=== PATIENT | male | born 1980 | race African-American/Black ===

== ENCOUNTER 2021-12-07 13:32 | Inpatient (IN) | payer OTHER, SELFPAY ==
[2021-12-07 13:46] VITALS: BP 110/65; BP 110/70; PULSE 75; PULSE 76; RESP 18; O2SAT 96; O2SAT 97; BMI 28.1
--- NOTE | 2021-12-07 13:50 | ECG_ITS ---
Test Reason : med clearance Blood Pressure : / mmHG Vent. Rate : 063 BPM Atrial Rate : 063 BPM P-R Int : 164 ms QRS Dur : 084 ms QT Int : 424 ms P-R-T Axes : 056 -16 -14 degrees QTc Int : 433 ms Normal sinus rhythm Nonspecific T wave abnormality Inferior leads Intra-ventricular conduction delay Abnormal ECG No previous ECGs available Referred By: Stephanie Moarles Electronically Signed By:AKIL SHARMA MD
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
[2021-12-07 14:35] LABS: COVID-19 Test Negative (Negative)
[2021-12-07 14:38] VITALS: TEMP 36.6
[2021-12-07 15:06] LABS: MANUAL DIFF FLAG NO
[2021-12-07 15:07] LABS: Basophils Percent Auto 0.4 % (0-2); Eosinophils Absolute Auto 0.1 X10*3/uL (0.0-0.4); Eosinophils Percent Auto 1.7 % (0-4); Hematocrit 43.4 % (42.0-52.0); Hemoglobin 15.3 g/dl (14.0-18.0); Imm Gran Abs Auto 0.02 X10*3/uL (0.00-0.03); Imm Gran Pct Auto 0.3 % (0.0-0.4); Lymphocytes Absolute Auto 2.1 X10*3/uL (1.2-4.9); Lymphocytes Percent Auto 27.5 % (20-40); Mean Corpuscular HGB Conc 35.3 g/dl (31.0-36.0); Mean Corpuscular Hemoglobin 34.3 pg (27.0-33.0); Mean Corpuscular Volume 97.3 fL (80.0-98.0); Mean Platelet Volume 9.2 fL (9.4-12.4); Monocytes Absolute Auto 0.7 X10*3/uL (0.1-1.2); Neutrophils Absolute Auto 4.7 x10*3/uL (2.0-8.3); Neutrophils Percent Auto 61.1 % (45-73); Platelet Count 233 X10*3/uL (160-400); Red Blood Count 4.46 X10*6/uL (4.60-5.80); Red Cell Distribution Width 12.3 % (11.0-16.0); White Blood Count 7.7 X10*3/uL (4.8-10.8)
[2021-12-07 15:22] LABS: Alanine Aminotransferase 16 U/L (0-40); Albumin Level 4.2 g/dL (3.5-5.0); Alkaline Phosphatase 65 U/L (39-117); Anion Gap 14 (12-20); Aspartate Amino Transferase 23 U/L (5-37); Bilirubin Total 0.5 mg/dL (0.0-1.0); Blood Urea Nitrogen 18 mg/dL (9-16); Calcium 9.3 mg/dL (8.4-10.2); Carbon Dioxide 26 mmol/L (22-29); Chloride 106 mmol/L (96-108); Creatinine Clr Calc Pharmacy 76.1; Estimated Glomerular Filt Rate 59; Ethanol < 10 mg/dL; Glucose Random 102 mg/dL (60-115); Potassium 3.6 mmol/L (3.3-5.1); Sodium 142 mmol/L (135-145); Total Protein 6.4 g/dL (6.5-8.0)
--- NOTE | 2021-12-07 15:32 | PC.NURSE ---
N referral completed/Sent/Confirmation received
--- NOTE | 2021-12-07 16:23 | PHA.MEDREC ---
Pharmacy Consult ? Medication Reconciliation Pharmacy has completed the medication reconciliation. Spoke with patient in the [facility]. List in chart from [facility]. Patient unsure of medications he is taking. He states he last took his medications this morning but before that it was 3 weeks ago.
[2021-12-07 16:32] LABS: Troponin-I High Sensitivity 12.1 ng/L (<3.5-35.0)
[2021-12-07 18:52] LABS: Troponin-I High Sensitivity 9.6 ng/L (<3.5-35.0)
[2021-12-07 19:04] LABS: Amphetamine Screen Urine Not Detected (Not Detect); Barbiturates, Urine Not Detected (Not Detect); Benzodiazepines Screen Urine Not Detected (Not Detect); Cannabinoid Screen Urine POSITIVE (Not Detect); Cocaine Screen Urine POSITIVE (Not Detect); Fentanyl, urine Not Detected (Not Detect); Opiate Screen Urine Not Detected (Not Detect); Phencyclidine Screen Urine Not Detected (Not Detect)
[2021-12-07 23:55] VITALS: BP 112/58; PULSE 67; RESP 18; TEMP 36.2; O2SAT 96
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
[2021-12-08] MEDS: Omeprazole 20 MG CAPSULE.DR PO (06:55)
[2021-12-08] MEDS: Benztropine Mesylate 1 MG TABLET PO ×2 (08:21→20:10)
[2021-12-08] MEDS: Cariprazine HCl 3 MG CAPSULE PO (08:21)
[2021-12-08] MEDS: Perphenazine 8 MG TABLET PO ×2 (08:21→20:10)
[2021-12-08 09:55] LABS: Alanine Aminotransferase 16 U/L (0-40); Albumin Level 4.5 g/dL (3.5-5.0); Alkaline Phosphatase 79 U/L (39-117); Anion Gap 17 (12-20); Aspartate Amino Transferase 24 U/L (5-37); Bilirubin Total < 0.2 mg/dL (0.0-1.0); Blood Urea Nitrogen 14 mg/dL (9-16); Calcium 9.8 mg/dL (8.4-10.2); Carbon Dioxide 28 mmol/L (22-29); Chloride 104 mmol/L (96-108); Cholesterol 193 mg/dL; Creatinine Clr Calc Pharmacy 76.1; Estimated Glomerular Filt Rate 59; Glucose Fasting 135 mg/dL (60-99); HDL Cholesterol 46 mg/dL; LDL Cholesterol Calculated 127 mg/dl; Potassium 4.7 mmol/L (3.3-5.1); Sodium 144 mmol/L (135-145); Triglycerides 100 mg/dL
[2021-12-08] MEDS: Acetaminophen 325 MG TABLET 650 MG PO (10:19)
[2021-12-08 10:48] VITALS: BP 128/74; PULSE 67; RESP 16; TEMP 36.6; O2SAT 97
[2021-12-08] MEDS: Gabapentin 600 MG TABLET PO ×2 (13:23→20:11)
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
[2021-12-08 17:21] VITALS: BP 135/81; PULSE 79; RESP 16; TEMP 36.6; O2SAT 98
[2021-12-08] MEDS: FLUoxetine HCl 20 MG CAPSULE 40 MG PO (20:11)
[2021-12-08 22:27] LABS: COVID-19 Test Negative (Negative); IDNOW Serial# 08D9AD1C
[2021-12-09] MEDS: traZODone HCL 50 MG TABLET PO (02:02)
[2021-12-09] MEDS: diphenhydrAMINE HCL 25 MG CAPSULE 50 MG PO (02:02)
[2021-12-09 06:00] VITALS: BP 126/84; PULSE 66; RESP 18; TEMP 36.2; O2SAT 99
[2021-12-09] MEDS: Omeprazole 20 MG CAPSULE.DR PO (06:29)
[2021-12-09] MEDS: Gabapentin 600 MG TABLET PO ×3 (08:31→20:22)
[2021-12-09] MEDS: Cariprazine HCl 3 MG CAPSULE PO (08:31)
[2021-12-09] MEDS: Perphenazine 8 MG TABLET PO (08:31)
[2021-12-09] MEDS: Benztropine Mesylate 1 MG TABLET PO ×2 (08:31→20:22)
[2021-12-09] MEDS: Acetaminophen 325 MG TABLET 650 MG PO (11:07)
--- NOTE | 2021-12-09 15:03 | HO.PSYCHPN ---
Subjective Subjective Date of Service: 12/09/21 Reason For Visit: Psychosis Subjective Notes: Conditional Voluntary Healthcare Proxy: No Guardianship: No Medical Problems Affecting Mental Status: No Interim History: Reports arm/shoulder pain-hx fracture in Feb 2021. States he was supposed to have surgery but missed appt. Reports popping sound in his shoulder at times. Asks if we can do the surgery here. Discussed OP referral when discharged. Denies SI/HI. Reports he is safe here. Full review of meds. Asks for increases of Vraylar and Perphenazine. Asks for pain mgt-will increase Gabapentin and add Ibuprofen. Believes he has a rash on his inner R arm-nothing visable to tw-will need to continue to monitor-itchy per pt report-?dry skin. Reports feeling safe on the unit. Interacting with peers (card games) and appears calm and without distress. Medication Compliance: Yes Side effects from medications: No Attending Groups: Yes Review of Systems Acute medical concerns: No Medical Review of Systems: unchanged Mental Status Exam Mental Status Exam Patient Appearance: Appropriate Patient Orientation: Person, Place, Time and Situation Level of Consciousness: Alert Patient Behavior: Appropriate, Talkative, Cooperative and Good Eye Contact Mood Description: Apprehensive Affect Description: Apprehensive Patient Cognition Impaired: No Ability to Follow Directions: Good Speech Pattern: Spontaneous Speech Memory Description: Episodic Impaired Hallucinations: Auditory (at times per pt report) Delusions: Not Present Thought Process: Distracted Thought Content: positive for [place] Judgement: Good Diagnostics Vital Signs (24Hr): Vital Signs - 24 hr 12/08/21 17:21 12/09/21 06:00 Temperature 97.9 F 97.2 F Pulse Rate 79 66 Respiratory Rate 16 18 Blood Pressure 135/81 126/84 Pulse Oximetry 98 99 Oxygen Delivery Method Room Air Room Air BMI result Body Mass Index 28.1 Labs Results: 12/07/21 15:01 12/08/21 08:21 Labs: Laboratory Results - last 48 hr 12/07/21 12/07/21 12/07/21 15:01 15:01 15:01 WBC 7.7 RBC 4.46 L Hgb 15.3 Hct 43.4 MCV 97.3 MCH 34.3 H MCHC 35.3 RDW 12.3 Plt Count 233 MPV 9.2 L Immature Gran % (Auto) 0.3 Neut % (Auto) 61.1 Lymph % (Auto) 27.5 [place] % (Auto) 9.0 Eos % (Auto) 1.7 Baso % (Auto) 0.4 Lymph # (Auto) 2.1 [place] # (Auto) 0.7 Eos # (Auto) 0.1 Baso # (Auto) 0.0 Abs Immat Gran (auto) 0.02 Absolute Neuts (auto) 4.7 Absolute Nucleated RBC 0.000 Nucleated RBC % (auto) 0.0 Sodium 142 Potassium 3.6 Chloride 106 Carbon Dioxide 26 Anion Gap 14 BUN 18 H Creatinine 1.32 Estim Creat Clear Calc 76.1 Estimated GFR 59 Random Glucose 102 Fasting Glucose Calcium 9.3 Total Bilirubin 0.5 AST 23 ALT 16 Alkaline Phosphatase 65 Troponin I High Sens 12.1 Total Protein 6.4 L Albumin 4.2 Triglycerides Cholesterol LDL Cholesterol, Calc HDL Cholesterol Urine Opiates Screen Urine Fentanyl Screen Ur Barbiturates Screen Ur Phencyclidine Scrn Ur Amphetamines Screen U Benzodiazepines Scrn Urine Cocaine Screen U Marijuana (THC) Screen Ethyl Alcohol < 10 COVID-19 (ELIZ) COVID-19 [employer] 12/07/21 12/07/21 12/08/21 18:21 18:39 08:21 WBC RBC Hgb Hct MCV MCH MCHC RDW Plt Count MPV Immature Gran % (Auto) Neut % (Auto) Lymph % (Auto) [place] % (Auto) Eos % (Auto) Baso % (Auto) Lymph # (Auto) [place] # (Auto) Eos # (Auto) Baso # (Auto) Abs Immat Gran (auto) Absolute Neuts (auto) Absolute Nucleated RBC Nucleated RBC % (auto) Sodium 144 Potassium 4.7 D Chloride 104 Carbon Dioxide 28 Anion Gap 17 BUN 14 Creatinine 1.32 Estim Creat Clear Calc 76.1 Estimated GFR 59 Random Glucose Fasting Glucose 135 H Calcium 9.8 Total Bilirubin < 0.2 AST 24 ALT 16 Alkaline Phosphatase 79 D Troponin I High Sens 9.6 Total Protein 7.0 Albumin 4.5 Triglycerides 100 Cholesterol 193 LDL Cholesterol, Calc 127 HDL Cholesterol 46 Urine Opiates Screen Not Detected Urine Fentanyl Screen Not Detected Ur Barbiturates Screen Not Detected Ur Phencyclidine Scrn Not Detected Ur Amphetamines Screen Not Detected U Benzodiazepines Scrn Not Detected Urine Cocaine Screen POSITIVE H U Marijuana (THC) Screen POSITIVE H Ethyl Alcohol COVID-19 (ELIZ) COVID-19 [employer] 12/08/21 21:52 WBC RBC Hgb Hct MCV MCH MCHC RDW Plt Count MPV Immature Gran % (Auto) Neut % (Auto) Lymph % (Auto) [place] % (Auto) Eos % (Auto) Baso % (Auto) Lymph # (Auto) [place] # (Auto) Eos # (Auto) Baso # (Auto) Abs Immat Gran (auto) Absolute Neuts (auto) Absolute Nucleated RBC Nucleated RBC % (auto) Sodium Potassium Chloride Carbon Dioxide Anion Gap BUN Creatinine Estim Creat Clear Calc Estimated GFR Random Glucose Fasting Glucose Calcium Total Bilirubin AST ALT Alkaline Phosphatase Troponin I High Sens Total Protein Albumin Triglycerides Cholesterol LDL Cholesterol, Calc HDL Cholesterol Urine Opiates Screen Urine Fentanyl Screen Ur Barbiturates Screen Ur Phencyclidine Scrn Ur Amphetamines Screen U Benzodiazepines Scrn Urine Cocaine Screen U Marijuana (THC) Screen Ethyl Alcohol COVID-19 (ELIZ) Negative COVID-19 [place] Com See Note Medications Medications Current Medications Acetaminophen (Acetaminophen 325 Mg Tablet) 650 mg PO Q6H PRN PRN Reason: Headache/Pain Mild Scale (1-3) Last Admin: 12/09/21 11:07 Dose: 650 mg Al Hydroxide/Mg Hydroxide (Magnesium Hydrox/Alum Hydrox 30 Ml Oral.Susp) 30 ml PO Q6H PRN PRN Reason: Heartburn/Nausea Benztropine Mesylate (Benztropine Mesylate 1 Mg Tablet) 1 mg PO BID [facility] Last Admin: 12/09/21 08:31 Dose: 1 mg Cariprazine (Cariprazine Hcl 1.5 Mg Capsule) 4.5 mg PO DAILY [facility] Diphenhydramine HCl (Diphenhydramine Hcl 25 Mg Capsule) 50 mg PO TID PRN PRN Reason: Anxiety Last Admin: 12/09/21 02:02 Dose: 50 mg Fluoxetine HCl (Fluoxetine Hcl 20 Mg Capsule) 40 mg PO BEDTIME [facility] Last Admin: 12/08/21 20:11 Dose: 40 mg Gabapentin (Gabapentin 600 Mg Tablet) 600 mg PO TID [facility] Last Admin: 12/09/21 14:40 Dose: 600 mg Ibuprofen (Ibuprofen 800 Mg Tablet) 800 mg PO TIDWM [facility] Magnesium Hydroxide (Milk Of Magnesia 30 Ml Oral.Susp) 30 ml PO DAILY PRN PRN Reason: Constipation Omeprazole (Omeprazole 20 Mg Capsule.Dr) 20 mg PO DAILY@0630 [facility] Last Admin: 12/09/21 06:29 Dose: 20 mg Perphenazine (Perphenazine 8 Mg Tablet) 16 mg PO BID [facility] Pharmacy Consult (Consult Rx Perform Med Rec) 1 each MISCELLANE ONCE PRN PRN Reason: Consult order Allergies Allergies Allergy/AdvReac Type Severity Reaction Status Date / Time No Known Allergies Allergy Verified 12/07/21 13:50 Assessment & Plan Assessment & Plan (1) Schizophrenia: Status: Acute Code(s): F20.9 - Schizophrenia, unspecified Plan 41 yo male, hx of schizophrenia, depression, anxiety to ER via [facility] for HI. Pt will not interview today. Medication regime is restarted. Observe and attempt alliance building. 12/09/21 -Increase Vraylar to 4.5 mg daily -Increase Perphenazine to 16 mg bid -Increase Gabapentin to 600 mg tid (shoulder pain) -Ibuprofen 800 mg tid wm (shoulder pain) I spent minutes with the patient and/or on the patient floor today, greater than?50% of which was spent counseling/coordinating care. Patient educated on: medication risk/benefits, therapeutic strategies and medical condition Informed Consent: understands and further education needed Reason for contiued inpatient stay Substantial Risk for: harm to self, harm to others and rapid decompensation
[2021-12-09] MEDS: Ibuprofen 800 MG TABLET PO (18:17)
[2021-12-09 18:43] VITALS: BP 128/64; PULSE 75; TEMP 36.4
[2021-12-09] MEDS: Perphenazine 8 MG TABLET 16 MG PO (20:22)
[2021-12-09] MEDS: FLUoxetine HCl 20 MG CAPSULE 40 MG PO (20:22)
[2021-12-10 06:00] VITALS: BP 134/82; PULSE 76; RESP 20; TEMP 36.6; O2SAT 98
[2021-12-10] MEDS: Omeprazole 20 MG CAPSULE.DR PO (08:04)
[2021-12-10] MEDS: Ibuprofen 800 MG TABLET PO ×3 (08:39→18:13)
[2021-12-10] MEDS: Perphenazine 8 MG TABLET 16 MG PO ×2 (08:39→21:17)
[2021-12-10] MEDS: Gabapentin 600 MG TABLET PO ×3 (08:39→21:17)
[2021-12-10] MEDS: Cariprazine HCl 1.5 MG CAPSULE 4.5 MG PO (08:39)
[2021-12-10] MEDS: Benztropine Mesylate 1 MG TABLET PO ×2 (08:39→21:17)
[2021-12-10] MEDS: Lidocaine 4 % Patch ADH..PATCH 2 PATCH TRANSDERMA ×2 (16:14→17:11)
[2021-12-10 19:06] VITALS: BP 145/79; PULSE 83; RESP 18; TEMP 36.9; O2SAT 95
[2021-12-10] MEDS: FLUoxetine HCl 20 MG CAPSULE 40 MG PO (21:16)
[2021-12-10] MEDS: diphenhydrAMINE HCL 25 MG CAPSULE 50 MG PO (21:16)
--- NOTE | 2021-12-10 22:22 | P.PNPSI_ITS ---
Subjective Subjective Date of Service: 12/10/21 Reason For Visit: Psychosis Subjective Notes: [place] Warning and Conditional Voluntary Healthcare Proxy: No Guardianship: No Medical Problems Affecting Mental Status: No Interim History: Met with pt. Per team, pt is requesting levothyroxine to be restored, reviewed pharmacy records, supposed to be on 25 mg, will also order TSH with T4. Pt complains of pain in both shoulders, willing to trail a lidoacaine patch, hx of shoulder fracture over a year ago. Pt also complains of rash on Left upper arm, reviewed with hospitalist, appears fungal, will order clotrimazole. Says he is doing alright considering the meds im taking dont work. Complains of depression, voices, its all that. Discussed that his doses were recently increased and encouraged him to give them a fair trial, pt is willing but insists they're not gonna work. Medication Compliance: Yes Side effects from medications: No Attending Groups: Yes Review of Systems Acute medical concerns: No Medical Review of Systems: unchanged Mental Status Exam Mental Status Exam Narrative: Patient Appearance: Appropriate Patient Orientation: Person, Place, Time and Situation Level of Consciousness: Alert Patient Behavior: Appropriate, Talkative, Cooperative and Good Eye Contact Mood Description: Apprehensive Affect Description: Apprehensive Patient Cognition Impaired: No Ability to Follow Directions: Good Speech Pattern: Spontaneous Speech Memory Description: Episodic Impaired Hallucinations: Auditory (at times per pt report) Delusions: Not Present Thought Process: Distracted Thought Content: positive for [place] Judgement: Good Diagnostics Vital Signs (24Hr): Vital Signs - 24 hr 12/10/21 06:00 12/10/21 19:06 Temperature 98 F 98.4 F Pulse Rate 76 83 Respiratory Rate 20 18 Blood Pressure 134/82 145/79 H Pulse Oximetry 98 95 Oxygen Delivery Method Room Air Room Air BMI result Body Mass Index 28.1 Labs Results: 12/07/21 15:01 12/08/21 08:21 Labs: Laboratory Results - last 48 hr 12/08/21 21:52 COVID-19 (ELIZ) Negative COVID-19 Clin Com See Note Medications Medications Current Medications Acetaminophen (Acetaminophen 325 Mg Tablet) 650 mg PO Q6H PRN PRN Reason: Headache/Pain Mild Scale (1-3) Last Admin: 12/09/21 11:07 Dose: 650 mg Al Hydroxide/Mg Hydroxide (Magnesium Hydrox/Alum Hydrox 30 Ml Oral.Susp) 30 ml PO Q6H PRN PRN Reason: Heartburn/Nausea Benztropine Mesylate (Benztropine Mesylate 1 Mg Tablet) 1 mg PO BID [facility] Last Admin: 12/10/21 21:17 Dose: 1 mg Cariprazine (Cariprazine Hcl 1.5 Mg Capsule) 4.5 mg PO DAILY [facility] Last Admin: 12/10/21 08:39 Dose: 4.5 mg Clotrimazole (Clotrimazole 1 % Cream 15 Gm Tube) 1 appl TOPICAL BID [facility] Last Admin: 12/10/21 21:26 Dose: Not Given Diphenhydramine HCl (Diphenhydramine Hcl 25 Mg Capsule) 50 mg PO TID PRN PRN Reason: Anxiety Last Admin: 12/10/21 21:16 Dose: 50 mg Fluoxetine HCl (Fluoxetine Hcl 20 Mg Capsule) 40 mg PO BEDTIME [facility] Last Admin: 12/10/21 21:16 Dose: 40 mg Gabapentin (Gabapentin 600 Mg Tablet) 600 mg PO TID [facility] Last Admin: 12/10/21 21:17 Dose: 600 mg Ibuprofen (Ibuprofen 800 Mg Tablet) 800 mg PO TIDWM [facility] Last Admin: 12/10/21 18:13 Dose: 800 mg Lidocaine (Lidocaine 4 % Patch Adh..Patch) 2 patch TRANSDERMA DAILY [facility] Last Admin: 12/10/21 17:11 Dose: 1 patch Magnesium Hydroxide (Milk Of Magnesia 30 Ml Oral.Susp) 30 ml PO DAILY PRN PRN Reason: Constipation Omeprazole (Omeprazole 20 Mg Capsule.Dr) 20 mg PO DAILY@0630 [facility] Last Admin: 12/10/21 08:04 Dose: 20 mg Perphenazine (Perphenazine 8 Mg Tablet) 16 mg PO BID [facility] Last Admin: 12/10/21 21:17 Dose: 16 mg Pharmacy Consult (Consult Rx Perform Med Rec) 1 each MISCELLANE ONCE PRN PRN Reason: Consult order Allergies Allergies Allergy/AdvReac Type Severity Reaction Status Date / Time No Known Allergies Allergy Verified 12/07/21 13:50 Assessment & Plan Assessment & Plan (1) Schizophrenia: Status: Acute Code(s): F20.9 - Schizophrenia, unspecified Plan 41 yo male, hx of schizophrenia, depression, anxiety to ER via [facility] for HI. Pt will not interview today. Medication regime is restarted. Observe and attempt alliance building. 12/09/21 -Increase Vraylar to 4.5 mg daily -Increase Perphenazine to 16 mg bid -Increase Gabapentin to 600 mg tid (shoulder pain) -Ibuprofen 800 mg tid wm (shoulder pain) 12/10/21: No med changes, added clotrimazole cream, levothyroxine, lidocaine patch I spent minutes with the patient and/or on the patient floor today, greater than?50% of which was spent counseling/coordinating care. Patient educated on: diagnosis, medication risk/benefits and therapeutic strategies Reason for contiued inpatient stay Substantial Risk for: med/psych decompensation
[2021-12-11] MEDS: diphenhydrAMINE HCL 25 MG CAPSULE 50 MG PO ×2 (02:14→11:48)
[2021-12-11 06:00] VITALS: BP 140/80; PULSE 80; RESP 18; TEMP 36.6; O2SAT 97
[2021-12-11] MEDS: Omeprazole 20 MG CAPSULE.DR PO (06:19)
[2021-12-11] MEDS: Levothyroxine Sodium 25 MCG TABLET PO (06:21)
[2021-12-11] MEDS: Gabapentin 600 MG TABLET PO ×3 (08:30→20:41)
[2021-12-11] MEDS: Perphenazine 8 MG TABLET 16 MG PO ×2 (08:30→20:41)
[2021-12-11] MEDS: Cariprazine HCl 1.5 MG CAPSULE 4.5 MG PO (08:30)
[2021-12-11] MEDS: Ibuprofen 800 MG TABLET PO ×3 (08:30→15:59)
[2021-12-11] MEDS: Benztropine Mesylate 1 MG TABLET PO ×2 (08:31→20:41)
[2021-12-11 09:51] LABS: TSH reflex Free T4 3.34 uIU/mL (0.32-4.0)
--- NOTE | 2021-12-11 13:06 | HO.PSYCHPN ---
Subjective Subjective Date of Service: 12/11/21 Reason For Visit: Psychosis Subjective Notes: [place] Warning Interim History: Discussed with team, met with pt. He reports he is frustrated, unhappy that his med doses were increased as he says they are ineffective and he does not want to take them anymore. Says he forgot if zyprexa worked for him but doesnt want to take it because of wt gain. Was on abilify for years, didnt do nothing. Says prior to trilafon he was on haldol but says it didnt work. Had a brief trial on latuda, willing to re-trial this for depression. Medication Compliance: Yes Side effects from medications: No Attending Groups: Intermittent Review of Systems Acute medical concerns: No Medical Review of Systems: unchanged Mental Status Exam Mental Status Exam Narrative: Patient Appearance: Appropriate Patient Orientation: Person, Place, Time and Situation Level of Consciousness: Alert Patient Behavior: Appropriate, Talkative, Cooperative and Good Eye Contact Mood Description: Apprehensive Affect Description: Apprehensive Patient Cognition Impaired: No Ability to Follow Directions: Good Speech Pattern: Spontaneous Speech Memory Description: Episodic Impaired Hallucinations: Auditory (at times per pt report) Delusions: Not Present Thought Process: Distracted Thought Content: positive for [place] Judgement: Good Diagnostics Vital Signs (24Hr): Vital Signs - 24 hr 12/10/21 19:06 12/11/21 06:00 Temperature 98.4 F 98 F Pulse Rate 83 80 Respiratory Rate 18 18 Blood Pressure 145/79 H 140/80 H Pulse Oximetry 95 97 Oxygen Delivery Method Room Air Room Air BMI result Body Mass Index 28.1 Labs Results: 12/07/21 15:01 12/08/21 08:21 Labs: Laboratory Results - last 48 hr 12/11/21 07:39 TSH 3.34 Medications Medications Current Medications Acetaminophen (Acetaminophen 325 Mg Tablet) 650 mg PO Q6H PRN PRN Reason: Headache/Pain Mild Scale (1-3) Last Admin: 12/09/21 11:07 Dose: 650 mg Al Hydroxide/Mg Hydroxide (Magnesium Hydrox/Alum Hydrox 30 Ml Oral.Susp) 30 ml PO Q6H PRN PRN Reason: Heartburn/Nausea Benztropine Mesylate (Benztropine Mesylate 1 Mg Tablet) 1 mg PO BID [facility] Last Admin: 12/11/21 08:31 Dose: 1 mg Cariprazine (Cariprazine Hcl 1.5 Mg Capsule) 4.5 mg PO DAILY [facility] Last Admin: 12/11/21 08:30 Dose: 4.5 mg Clotrimazole (Clotrimazole 1 % Cream 15 Gm Tube) 1 appl TOPICAL BID [facility] Last Admin: 12/11/21 12:22 Dose: Not Given Diphenhydramine HCl (Diphenhydramine Hcl 25 Mg Capsule) 50 mg PO TID PRN PRN Reason: Anxiety Last Admin: 12/11/21 11:48 Dose: 50 mg Fluoxetine HCl (Fluoxetine Hcl 20 Mg Capsule) 40 mg PO BEDTIME [facility] Last Admin: 12/10/21 21:16 Dose: 40 mg Gabapentin (Gabapentin 600 Mg Tablet) 600 mg PO TID [facility] Last Admin: 12/11/21 08:30 Dose: 600 mg Ibuprofen (Ibuprofen 800 Mg Tablet) 800 mg PO TIDWM [facility] Last Admin: 12/11/21 11:48 Dose: 800 mg Levothyroxine Sodium (Levothyroxine Sodium 25 Mcg Tablet) 25 mcg PO DAILY@0600 [facility] Last Admin: 12/11/21 06:21 Dose: 25 mcg Lidocaine (Lidocaine 4 % Patch Adh..Patch) 2 patch TRANSDERMA DAILY [facility] Last Admin: 12/10/21 17:11 Dose: 1 patch Magnesium Hydroxide (Milk Of Magnesia 30 Ml Oral.Susp) 30 ml PO DAILY PRN PRN Reason: Constipation Omeprazole (Omeprazole 20 Mg Capsule.Dr) 20 mg PO DAILY@0630 [facility] Last Admin: 12/11/21 06:19 Dose: 20 mg Perphenazine (Perphenazine 8 Mg Tablet) 16 mg PO BID [facility] Last Admin: 12/11/21 08:30 Dose: 16 mg Pharmacy Consult (Consult Rx Perform Med Rec) 1 each MISCELLANE ONCE PRN PRN Reason: Consult order Allergies Allergies Allergy/AdvReac Type Severity Reaction Status Date / Time No Known Allergies Allergy Verified 12/07/21 13:50 Assessment & Plan Assessment & Plan (1) Schizophrenia: Status: Acute Code(s): F20.9 - Schizophrenia, unspecified Plan 41 yo male, hx of schizophrenia, depression, anxiety to ER via [facility] for HI. Pt will not interview today. Medication regime is restarted. Observe and attempt alliance building. 12/09/21 -Increase Vraylar to 4.5 mg daily -Increase Perphenazine to 16 mg bid -Increase Gabapentin to 600 mg tid (shoulder pain) -Ibuprofen 800 mg tid wm (shoulder pain) 12/10/21: No med changes, added clotrimazole cream, levothyroxine, lidocaine patch 12/11/21: D/c ortegaaylar, as pt does not want to continue it or wait for benefit, prefers to re-trial latuda 40 mg HS for depression and AH. I spent minutes with the patient and/or on the patient floor today, greater than?50% of which was spent counseling/coordinating care. Patient educated on: diagnosis, medication risk/benefits and therapeutic strategies Reason for contiued inpatient stay Substantial Risk for: rapid decompensation and med/psych decompensation
[2021-12-11 16:22] VITALS: BP 134/85; PULSE 92; RESP 18; TEMP 36.8; O2SAT 96
[2021-12-11] MEDS: FLUoxetine HCl 20 MG CAPSULE 40 MG PO (20:41)
[2021-12-11] MEDS: Clotrimazole 1 % Cream 15 GM TUBE 1 APPL TOPICAL (20:41)
[2021-12-11] MEDS: Carbamide Peroxide 6.5% Otic 15 ML DRPBTL 5 DROP EAR-BOTH (23:08)
[2021-12-12] MEDS: diphenhydrAMINE HCL 25 MG CAPSULE 50 MG PO ×3 (00:33→21:12)
[2021-12-12 06:00] VITALS: BP 124/84; PULSE 80; RESP 14; TEMP 36.6; O2SAT 97
[2021-12-12] MEDS: Levothyroxine Sodium 25 MCG TABLET PO (06:12)
[2021-12-12] MEDS: Omeprazole 20 MG CAPSULE.DR PO (06:12)
--- NOTE | 2021-12-12 06:54 | PM.EVENT ---
Event Note Date of Service: 12/12/21 Event Note: Patient complaining of bilateral ear blocked.? Reports that he is unable to hear to well from his ears and the sounds are muffled.? Of the scope revealed and the ear canal that is blocked by wax.? Recommended starting Debrox ear drops, I also attempted to rinse out the wax with normal saline, which was somewhat effective on the left ear but not significantly effective on the right.? Continue Debrox ear drops
[2021-12-12] MEDS: Gabapentin 600 MG TABLET PO ×3 (08:21→22:07)
[2021-12-12] MEDS: Benztropine Mesylate 1 MG TABLET PO ×2 (08:21→22:07)
[2021-12-12] MEDS: Ibuprofen 800 MG TABLET PO ×3 (08:21→17:51)
[2021-12-12] MEDS: Perphenazine 8 MG TABLET 16 MG PO ×2 (08:21→22:06)
[2021-12-12] MEDS: Carbamide Peroxide 6.5% Otic 15 ML DRPBTL 5 DROP EAR-BOTH ×2 (08:56→22:08)
[2021-12-12 10:36] LABS: Thyroid Stimulating Hormone 1.57 uIU/mL (0.32-4.0)
[2021-12-12 11:03] LABS: Estimated Average Glucose 103 mg/dL; Hemoglobin A1c % 5.2 %
[2021-12-12 11:27] LABS: Folate 6.6 ng/mL (> or = 4.0); Vitamin B12 388 pg/mL (200-900)
[2021-12-12] MEDS: Lidocaine 4 % Patch ADH..PATCH 2 PATCH TRANSDERMA (14:32)
--- NOTE | 2021-12-12 16:56 | HO.PSYCHPN ---
Subjective Subjective Date of Service: 12/12/21 Reason For Visit: Psychosis Subjective Notes: [place] Warning and Conditional Voluntary Healthcare Proxy: No Guardianship: No Medical Problems Affecting Mental Status: No Interim History: Discussed with team. Spoke with pt. Says his lidocaine patch is helping. Wants to trial an increase in latuda. Says Im in a space right now. The voices are alright, just annoying. Hears voices when he is in a crowd, hears people threatening his life, talking about him. Complains of anxiety, provides more detail saying he is anxious with crowds, being alone, worries about dying and that when he dies nobody's gonna be there, says he is anxious even smoking a cigarette. Anxious on the bus. Medication Compliance: Yes Side effects from medications: No Attending Groups: Yes Review of Systems Acute medical concerns: No Medical Review of Systems: unchanged Mental Status Exam Mental Status Exam Narrative: Patient Appearance: Appropriate Patient Orientation: Person, Place, Time and Situation Level of Consciousness: Alert Patient Behavior: Appropriate, Talkative, Cooperative and Good Eye Contact Mood Description: Apprehensive Affect Description: Apprehensive Patient Cognition Impaired: No Ability to Follow Directions: Good Speech Pattern: Spontaneous Speech Memory Description: Episodic Impaired Hallucinations: Auditory (at times per pt report) Delusions: Not Present Thought Process: Distracted Thought Content: positive for [place] Judgement: Good Diagnostics Vital Signs (24Hr): Vital Signs - 24 hr 12/12/21 06:00 Temperature 98 F Pulse Rate 80 Respiratory Rate 14 Blood Pressure 124/84 Pulse Oximetry 97 Oxygen Delivery Method Room Air BMI result Body Mass Index 28.1 Labs Results: 12/07/21 15:01 12/08/21 08:21 Labs: Laboratory Results - last 48 hr 12/11/21 12/12/21 12/12/21 07:39 09:46 09:46 Estimat Average Glucose 103 Hemoglobin A1c % 5.2 Vitamin B12 388 Folate 6.6 TSH 3.34 12/12/21 09:46 Estimat Average Glucose Hemoglobin A1c % Vitamin B12 Folate TSH 1.57 Medications Medications Current Medications Acetaminophen (Acetaminophen 325 Mg Tablet) 650 mg PO Q6H PRN PRN Reason: Headache/Pain Mild Scale (1-3) Last Admin: 12/09/21 11:07 Dose: 650 mg Al Hydroxide/Mg Hydroxide (Magnesium Hydrox/Alum Hydrox 30 Ml Oral.Susp) 30 ml PO Q6H PRN PRN Reason: Heartburn/Nausea Benztropine Mesylate (Benztropine Mesylate 1 Mg Tablet) 1 mg PO BID [facility] Last Admin: 12/12/21 08:21 Dose: 1 mg Carbamide Peroxide (Carbamide Peroxide 6.5% Otic 15 Ml Drpbtl) 5 drop EAR-BOTH BID [facility] Stop: 12/15/21 22:12 Last Admin: 12/12/21 08:56 Dose: 5 drop Clotrimazole (Clotrimazole 1 % Cream 15 Gm Tube) 1 appl TOPICAL BID [facility] Last Admin: 12/12/21 08:57 Dose: Not Given Diphenhydramine HCl (Diphenhydramine Hcl 25 Mg Capsule) 50 mg PO TID PRN PRN Reason: Anxiety Last Admin: 12/12/21 15:25 Dose: 50 mg Fluoxetine HCl (Fluoxetine Hcl 20 Mg Capsule) 40 mg PO BEDTIME [facility] Last Admin: 12/11/21 20:41 Dose: 40 mg Gabapentin (Gabapentin 600 Mg Tablet) 600 mg PO TID [facility] Last Admin: 12/12/21 14:01 Dose: 600 mg Ibuprofen (Ibuprofen 800 Mg Tablet) 800 mg PO TIDWM [facility] Last Admin: 12/12/21 12:19 Dose: 800 mg Levothyroxine Sodium (Levothyroxine Sodium 25 Mcg Tablet) 25 mcg PO DAILY@0600 [facility] Last Admin: 12/12/21 06:12 Dose: 25 mcg Lidocaine (Lidocaine 4 % Patch Adh..Patch) 2 patch TRANSDERMA DAILY [facility] Last Admin: 12/12/21 14:32 Dose: 2 patch Lurasidone HCl (Lurasidone Hcl 40 Mg Tablet) 40 mg PO DAILY@1800 [facility] Magnesium Hydroxide (Milk Of Magnesia 30 Ml Oral.Susp) 30 ml PO DAILY PRN PRN Reason: Constipation Omeprazole (Omeprazole 20 Mg Capsule.Dr) 20 mg PO DAILY@0630 [facility] Last Admin: 12/12/21 06:12 Dose: 20 mg Perphenazine (Perphenazine 8 Mg Tablet) 16 mg PO BID [facility] Last Admin: 12/12/21 08:21 Dose: 16 mg Pharmacy Consult (Consult Rx Perform Med Rec) 1 each MISCELLANE ONCE PRN PRN Reason: Consult order Allergies Allergies Allergy/AdvReac Type Severity Reaction Status Date / Time No Known Allergies Allergy Verified 12/07/21 13:50 Assessment & Plan Assessment & Plan (1) Schizophrenia: Status: Acute Code(s): F20.9 - Schizophrenia, unspecified Plan 41 yo male, hx of schizophrenia, depression, anxiety to ER via [facility] for HI. Pt will not interview today. Medication regime is restarted. Observe and attempt alliance building. 12/09/21 -Increase Vraylar to 4.5 mg daily -Increase Perphenazine to 16 mg bid -Increase Gabapentin to 600 mg tid (shoulder pain) -Ibuprofen 800 mg tid wm (shoulder pain) 12/10/21: No med changes, added clotrimazole cream, levothyroxine, lidocaine patch 12/11/21: D/c vraylar, as pt does not want to continue it or wait for benefit, prefers to re-trial latuda 40 mg HS for depression and AH. 12/12/21: Will increase latuda to 60 mg with dinner for depression and AH. Will start clonidine 0.1 mg BID for anxiety, hyperarousal. I spent minutes with the patient and/or on the patient floor today, greater than?50% of which was spent counseling/coordinating care. Patient educated on: medication risk/benefits and therapeutic strategies Reason for contiued inpatient stay Substantial Risk for: med/psych decompensation
[2021-12-12 17:45] VITALS: BP 126/70; PULSE 97; TEMP 36.5
[2021-12-12] MEDS: Lurasidone HCl 40 MG TABLET PO (18:44)
[2021-12-12] MEDS: cloNIDine HCL 0.1 MG TABLET PO (21:10)
[2021-12-12] MEDS: FLUoxetine HCl 20 MG CAPSULE 40 MG PO (22:06)
[2021-12-12] MEDS: Clotrimazole 1 % Cream 15 GM TUBE 1 APPL TOPICAL (22:09)
[2021-12-13] MEDS: diphenhydrAMINE HCL 25 MG CAPSULE 50 MG PO ×3 (03:54→15:59)
[2021-12-13] MEDS: Omeprazole 20 MG CAPSULE.DR PO (05:38)
[2021-12-13] MEDS: Levothyroxine Sodium 25 MCG TABLET PO (05:38)
[2021-12-13 08:10] VITALS: BP 113/66; PULSE 74; RESP 16; TEMP 36.7; O2SAT 96
[2021-12-13] MEDS: Lidocaine 4 % Patch ADH..PATCH 2 PATCH TRANSDERMA (09:31)
[2021-12-13] MEDS: Perphenazine 8 MG TABLET 16 MG PO ×2 (09:33→19:13)
[2021-12-13] MEDS: Gabapentin 600 MG TABLET PO ×3 (09:33→19:13)
[2021-12-13] MEDS: Benztropine Mesylate 1 MG TABLET PO ×2 (09:34→19:13)
[2021-12-13] MEDS: cloNIDine HCL 0.1 MG TABLET PO ×2 (09:34→19:14)
[2021-12-13] MEDS: Ibuprofen 800 MG TABLET PO ×3 (09:34→16:59)
[2021-12-13] MEDS: Clotrimazole 1 % Cream 15 GM TUBE 1 APPL TOPICAL ×2 (09:36→19:24)
[2021-12-13] MEDS: Carbamide Peroxide 6.5% Otic 15 ML DRPBTL 5 DROP EAR-BOTH ×2 (09:37→19:24)
[2021-12-13] MEDS: Lurasidone HCl 20 MG TABLET 60 MG PO (16:59)
[2021-12-13 17:10] VITALS: BP 118/66; PULSE 77; RESP 16; TEMP 36.7; O2SAT 98
--- NOTE | 2021-12-13 18:20 | HO.PSYCHPN ---
Subjective Subjective Date of Service: 12/13/21 Reason For Visit: Psychosis Interim History: Discussed with team. Met with pt. Says he has continued using the debrox but he is uncomfortable, notices R ear hearing loss. Hospitalist consulted, recommended pt continue to use debrox for five days, will order claritin for itching. Otherwise, pt says he is doing alright. Says he was able to sleep. On clonidine, I feel less anxious. On latuda 60 mg, however feels the voices are the same. Mood is somewhat improved, feels more positive. Feels safe. Medication Compliance: Yes Side effects from medications: No Attending Groups: Yes Review of Systems Acute medical concerns: No Medical Review of Systems: unchanged Mental Status Exam Mental Status Exam Narrative: Patient Appearance: Appropriate Patient Orientation: Person, Place, Time and Situation Level of Consciousness: Alert Patient Behavior: Appropriate, Talkative, Cooperative and Good Eye Contact Mood Description: Apprehensive Affect Description: Apprehensive Patient Cognition Impaired: No Ability to Follow Directions: Good Speech Pattern: Spontaneous Speech Memory Description: Episodic Impaired Hallucinations: Auditory (at times per pt report) Delusions: Not Present Thought Process: Distracted Thought Content: positive for Nathalie Judgement: Good Diagnostics Vital Signs (24Hr): Vital Signs - 24 hr 12/13/21 08:10 12/13/21 17:10 Temperature 98.1 F 98.1 F Pulse Rate 74 77 Respiratory Rate 16 16 Blood Pressure 113/66 118/66 Pulse Oximetry 96 98 Oxygen Delivery Method Room Air Room Air BMI result Body Mass Index 28.1 Labs Results: 12/07/21 15:01 12/08/21 08:21 Labs: Laboratory Results - last 48 hr 12/12/21 12/12/21 12/12/21 09:46 09:46 09:46 Estimat Average Glucose 103 Hemoglobin A1c % 5.2 Vitamin B12 388 Folate 6.6 TSH 1.57 Medications Medications Current Medications Acetaminophen (Acetaminophen 325 Mg Tablet) 650 mg PO Q6H PRN PRN Reason: Headache/Pain Mild Scale (1-3) Last Admin: 12/09/21 11:07 Dose: 650 mg Al Hydroxide/Mg Hydroxide (Magnesium Hydrox/Alum Hydrox 30 Ml Oral.Susp) 30 ml PO Q6H PRN PRN Reason: Heartburn/Nausea Benztropine Mesylate (Benztropine Mesylate 1 Mg Tablet) 1 mg PO BID [facility] Last Admin: 12/13/21 09:34 Dose: 1 mg Carbamide Peroxide (Carbamide Peroxide 6.5% Otic 15 Ml Drpbtl) 5 drop EAR-BOTH BID [facility] Stop: 12/15/21 22:12 Last Admin: 12/13/21 09:37 Dose: 5 drop Clonidine HCl (Clonidine Hcl 0.1 Mg Tablet) 0.1 mg PO BID [facility]; Protocol Last Admin: 12/13/21 09:34 Dose: 0.1 mg Clotrimazole (Clotrimazole 1 % Cream 15 Gm Tube) 1 appl TOPICAL BID [facility] Last Admin: 12/13/21 09:36 Dose: 1 appl Diphenhydramine HCl (Diphenhydramine Hcl 25 Mg Capsule) 50 mg PO TID PRN PRN Reason: Anxiety Last Admin: 12/13/21 15:59 Dose: 50 mg Fluoxetine HCl (Fluoxetine Hcl 20 Mg Capsule) 40 mg PO BEDTIME [facility] Last Admin: 12/12/21 22:06 Dose: 40 mg Gabapentin (Gabapentin 600 Mg Tablet) 600 mg PO TID [facility] Last Admin: 12/13/21 14:37 Dose: 600 mg Ibuprofen (Ibuprofen 800 Mg Tablet) 800 mg PO TIDWM [facility] Last Admin: 12/13/21 16:59 Dose: 800 mg Levothyroxine Sodium (Levothyroxine Sodium 25 Mcg Tablet) 25 mcg PO DAILY@0600 [facility] Last Admin: 12/13/21 05:38 Dose: 25 mcg Lidocaine (Lidocaine 4 % Patch Adh..Patch) 2 patch TRANSDERMA DAILY [facility] Last Admin: 12/13/21 09:31 Dose: 2 patch Lurasidone HCl (Lurasidone Hcl 20 Mg Tablet) 60 mg PO DAILY@1800 [facility] Last Admin: 12/13/21 16:59 Dose: 60 mg Magnesium Hydroxide (Milk Of Magnesia 30 Ml Oral.Susp) 30 ml PO DAILY PRN PRN Reason: Constipation Omeprazole (Omeprazole 20 Mg Capsule.Dr) 20 mg PO DAILY@0630 [facility] Last Admin: 12/13/21 05:38 Dose: 20 mg Perphenazine (Perphenazine 8 Mg Tablet) 16 mg PO BID [facility] Last Admin: 12/13/21 09:33 Dose: 16 mg Pharmacy Consult (Consult Rx Perform Med Rec) 1 each MISCELLANE ONCE PRN PRN Reason: Consult order Allergies Allergies Allergy/AdvReac Type Severity Reaction Status Date / Time No Known Allergies Allergy Verified 12/07/21 13:50 Assessment & Plan Assessment & Plan (1) Schizophrenia: Status: Acute Code(s): F20.9 - Schizophrenia, unspecified Plan 41 yo male, hx of schizophrenia, depression, anxiety to ER via [facility] for HI. Pt will not interview today. Medication regime is restarted. Observe and attempt alliance building. 12/09/21 -Increase Vraylar to 4.5 mg daily -Increase Perphenazine to 16 mg bid -Increase Gabapentin to 600 mg tid (shoulder pain) -Ibuprofen 800 mg tid wm (shoulder pain) 12/10/21: No med changes, added clotrimazole cream, levothyroxine, lidocaine patch 12/11/21: D/c vraylar, as pt does not want to continue it or wait for benefit, prefers to re-trial latuda 40 mg HS for depression and AH. 12/12/21: Will increase latuda to 60 mg with dinner for depression and AH. Will start clonidine 0.1 mg BID for anxiety, hyperarousal. 12/12/21: No med changes other than adding claritin for itching in ears I spent minutes with the patient and/or on the patient floor today, greater than?50% of which was spent counseling/coordinating care. Patient educated on: diagnosis, medication risk/benefits and therapeutic strategies Reason for contiued inpatient stay Substantial Risk for: med/psych decompensation
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
[2021-12-13] MEDS: Loratadine 10 MG TABLET PO (19:13)
[2021-12-13] MEDS: FLUoxetine HCl 20 MG CAPSULE 40 MG PO (19:14)
[2021-12-14] MEDS: diphenhydrAMINE HCL 25 MG CAPSULE 50 MG PO ×2 (02:15→12:35)
[2021-12-14 08:12] VITALS: BP 124/68; PULSE 68; RESP 18; TEMP 36.7; O2SAT 97
[2021-12-14] MEDS: Clotrimazole 1 % Cream 15 GM TUBE 1 APPL TOPICAL ×2 (08:27→19:06)
[2021-12-14] MEDS: Lidocaine 4 % Patch ADH..PATCH 2 PATCH TRANSDERMA (08:27)
[2021-12-14] MEDS: Perphenazine 8 MG TABLET 16 MG PO ×2 (08:28→20:10)
[2021-12-14] MEDS: Levothyroxine Sodium 25 MCG TABLET PO (08:28)
[2021-12-14] MEDS: Gabapentin 600 MG TABLET PO ×3 (08:28→20:10)
[2021-12-14] MEDS: Loratadine 10 MG TABLET PO (08:28)
[2021-12-14] MEDS: Ibuprofen 800 MG TABLET PO ×3 (08:29→18:05)
[2021-12-14] MEDS: Benztropine Mesylate 1 MG TABLET PO ×2 (08:29→20:09)
[2021-12-14] MEDS: cloNIDine HCL 0.1 MG TABLET PO ×2 (08:29→20:09)
[2021-12-14] MEDS: Omeprazole 20 MG CAPSULE.DR PO (08:29)
[2021-12-14] MEDS: Carbamide Peroxide 6.5% Otic 15 ML DRPBTL 5 DROP EAR-BOTH (09:31)
[2021-12-14] MEDS: Acetaminophen 325 MG TABLET 650 MG PO (16:17)
[2021-12-14] MEDS: Throat Lozenge, Medicated LOZENGE 1 LOZENGE MUCOUS MEM (16:17)
--- NOTE | 2021-12-14 17:00 | P.PNPSI_ITS ---
Subjective Subjective Date of Service: 12/14/21 Reason For Visit: Psychosis Subjective Notes: Conditional Voluntary Healthcare Proxy: No Guardianship: No Medical Problems Affecting Mental Status: No Interim History: Reports sore throat-culture sent. Unsure if he will be prepared to leave on 12/15 as he is experiencing URI sx. Reports no SI, HI, perceptual alterations. Reports med regime is tolerated and without SE. Medication Compliance: Yes Side effects from medications: No Attending Groups: Intermittent Review of Systems Acute medical concerns: No Medical Review of Systems: unchanged Mental Status Exam Mental Status Exam Patient Appearance: Appropriate Patient Orientation: Person, Place, Time and Situation Level of Consciousness: Alert Patient Behavior: Talkative and Cooperative Mood Description: Constricted Affect Description: Constricted Patient Cognition Impaired: No Ability to Follow Directions: Good Speech Pattern: Spontaneous Speech Memory Description: Intact Hallucinations: None Delusions: Not Present Thought Process: Intact Thought Content: positive for Intact Judgement: Good Diagnostics Vital Signs (24Hr): Vital Signs - 24 hr 12/13/21 17:10 12/14/21 08:12 Temperature 98.1 F 98.0 F Pulse Rate 77 68 Respiratory Rate 16 18 Blood Pressure 118/66 124/68 Pulse Oximetry 98 97 Oxygen Delivery Method Room Air Room Air BMI result Body Mass Index 28.1 Labs Results: 12/07/21 15:01 12/08/21 08:21 Medications Medications Current Medications Acetaminophen (Acetaminophen 325 Mg Tablet) 650 mg PO Q6H PRN PRN Reason: Headache/Pain Mild Scale (1-3) Last Admin: 12/14/21 16:17 Dose: 650 mg Al Hydroxide/Mg Hydroxide (Magnesium Hydrox/Alum Hydrox 30 Ml Oral.Susp) 30 ml PO Q6H PRN PRN Reason: Heartburn/Nausea Benzocaine (Throat Lozenge, Medicated Lozenge) 1 lozenge MUCOUS MEM Q2H PRN PRN Reason: Sore Throat Last Admin: 12/14/21 16:17 Dose: 1 lozenge Benztropine Mesylate (Benztropine Mesylate 1 Mg Tablet) 1 mg PO BID [facility] Last Admin: 12/14/21 08:29 Dose: 1 mg Carbamide Peroxide (Carbamide Peroxide 6.5% Otic 15 Ml Drpbtl) 5 drop EAR-BOTH BID [facility] Stop: 12/15/21 22:12 Last Admin: 12/14/21 09:31 Dose: 5 drop Clonidine HCl (Clonidine Hcl 0.1 Mg Tablet) 0.1 mg PO BID [facility]; Protocol Last Admin: 12/14/21 08:29 Dose: 0.1 mg Clotrimazole (Clotrimazole 1 % Cream 15 Gm Tube) 1 appl TOPICAL BID [facility] Last Admin: 12/14/21 08:27 Dose: 1 appl Diphenhydramine HCl (Diphenhydramine Hcl 25 Mg Capsule) 50 mg PO TID PRN PRN Reason: Anxiety Last Admin: 12/14/21 12:35 Dose: 50 mg Fluoxetine HCl (Fluoxetine Hcl 20 Mg Capsule) 40 mg PO BEDTIME [facility] Last Admin: 12/13/21 19:14 Dose: 40 mg Gabapentin (Gabapentin 600 Mg Tablet) 600 mg PO TID [facility] Last Admin: 12/14/21 14:56 Dose: 600 mg Ibuprofen (Ibuprofen 800 Mg Tablet) 800 mg PO TIDWM [facility] Last Admin: 12/14/21 11:31 Dose: 800 mg Levothyroxine Sodium (Levothyroxine Sodium 25 Mcg Tablet) 25 mcg PO DAILY@0600 [facility] Last Admin: 12/14/21 08:28 Dose: 25 mcg Lidocaine (Lidocaine 4 % Patch Adh..Patch) 2 patch TRANSDERMA DAILY [facility] Last Admin: 12/14/21 08:27 Dose: 2 patch Loratadine (Loratadine 10 Mg Tablet) 10 mg PO DAILY [facility] Last Admin: 12/14/21 08:28 Dose: 10 mg Lurasidone HCl (Lurasidone Hcl 20 Mg Tablet) 60 mg PO DAILY@1800 [facility] Last Admin: 12/13/21 16:59 Dose: 60 mg Magnesium Hydroxide (Milk Of Magnesia 30 Ml Oral.Susp) 30 ml PO DAILY PRN PRN Reason: Constipation Multi-Ingred Medicated Throat [place] (Throat [place], Medicated 20 Ml Bottle) 1 spray MUCOUS MEM Q2H PRN PRN Reason: Sore Throat Omeprazole (Omeprazole 20 Mg Capsule.Dr) 20 mg PO DAILY@0630 [facility] Last Admin: 12/14/21 08:29 Dose: 20 mg Perphenazine (Perphenazine 8 Mg Tablet) 16 mg PO BID [facility] Last Admin: 12/14/21 08:28 Dose: 16 mg Pharmacy Consult (Consult Rx Perform Med Rec) 1 each MISCELLANE ONCE PRN PRN Reason: Consult order Allergies Allergies Allergy/AdvReac Type Severity Reaction Status Date / Time No Known Allergies Allergy Verified 12/07/21 13:50 Assessment & Plan Assessment & Plan (1) Schizophrenia: Status: Acute Code(s): F20.9 - Schizophrenia, unspecified Plan 41 yo male, hx of schizophrenia, depression, anxiety to ER via [facility] for HI. Pt will not interview today. Medication regime is restarted. Observe and attempt alliance building. 12/09/21 -Increase Vraylar to 4.5 mg daily -Increase Perphenazine to 16 mg bid -Increase Gabapentin to 600 mg tid (shoulder pain) -Ibuprofen 800 mg tid wm (shoulder pain) 12/10/21: No med changes, added clotrimazole cream, levothyroxine, lidocaine patch 12/11/21: D/c vraylar, as pt does not want to continue it or wait for benefit, prefers to re-trial latuda 40 mg HS for depression and AH. 12/12/21: Will increase latuda to 60 mg with dinner for depression and AH. Will start clonidine 0.1 mg BID for anxiety, hyperarousal. 12/12/21: No med changes other than adding claritin for itching in ears 12/14/21: Throat culture No medication changes today. I spent minutes with the patient and/or on the patient floor today, greater than?50% of which was spent counseling/coordinating care. Patient educated on: therapeutic strategies and medical condition Informed Consent: understands and further education needed Reason for contiued inpatient stay Substantial Risk for: stable for discharge
[2021-12-14 18:00] VITALS: BP 129/75; PULSE 77; RESP 18; TEMP 36.9; O2SAT 97
[2021-12-14] MEDS: Lurasidone HCl 20 MG TABLET 60 MG PO (18:03)
--- NOTE | 2021-12-14 18:20 | HO.PM.IMPN ---
Subjective Subjective Date of Service: 12/14/21 Interval History: Pt seen in follow up for bilateral cerumen irrigation. Has been using debrox BID for 3 days now. Does report some improvement in pruritus and hearing loss though this does persist in the right ear. Review of Systems Review of Systems: Yes all other systems are reviewed and are negative Physical Exam Vital Signs: Vital Signs: Last Vital Signs Temp 98.0 F 12/14/21 08:12 Pulse 68 12/14/21 08:12 Resp 18 12/14/21 08:12 BP 124/68 12/14/21 08:12 Pulse Ox 97 12/14/21 08:12 O2 Del Method 12/14/21 08:12 BMI result Body Mass Index 28.1 Constitutional - Awake and Alert, No apparent distress Eyes - PERRLA, EOMI Ears. External ears normal nontender with manipulation of tragus and pinna. Dark yellow cerumen minimally impacted obstructing visual of tm b/l Objective Data Active Medications Acetaminophen (Acetaminophen 325 Mg Tablet) 650 mg PO Q6H PRN PRN Reason: Headache/Pain Mild Scale (1-3) Last Admin: 12/14/21 16:17 Dose: 650 mg Documented By: KAYLA Al Hydroxide/Mg Hydroxide (Magnesium Hydrox/Alum Hydrox 30 Ml Oral.Susp) 30 ml PO Q6H PRN PRN Reason: Heartburn/Nausea Benzocaine (Throat Lozenge, Medicated Lozenge) 1 lozenge MUCOUS MEM Q2H PRN PRN Reason: Sore Throat Last Admin: 12/14/21 16:17 Dose: 1 lozenge Documented By: KAYLA Benztropine Mesylate (Benztropine Mesylate 1 Mg Tablet) 1 mg PO BID [facility] Last Admin: 12/14/21 08:29 Dose: 1 mg Documented By: JOSH Carbamide Peroxide (Carbamide Peroxide 6.5% Otic 15 Ml Drpbtl) 5 drop EAR-BOTH BID [facility] Stop: 12/15/21 22:12 Last Admin: 12/14/21 09:31 Dose: 5 drop Documented By: JOSH Clonidine HCl (Clonidine Hcl 0.1 Mg Tablet) 0.1 mg PO BID [facility]; Protocol Last Admin: 12/14/21 08:29 Dose: 0.1 mg Documented By: JOSH Clotrimazole (Clotrimazole 1 % Cream 15 Gm Tube) 1 appl TOPICAL BID [facility] Last Admin: 12/14/21 08:27 Dose: 1 appl Documented By: JOSH Diphenhydramine HCl (Diphenhydramine Hcl 25 Mg Capsule) 50 mg PO TID PRN PRN Reason: Anxiety Last Admin: 12/14/21 12:35 Dose: 50 mg Documented By: JOSH Fluoxetine HCl (Fluoxetine Hcl 20 Mg Capsule) 40 mg PO BEDTIME [facility] Last Admin: 12/13/21 19:14 Dose: 40 mg Documented By: MARNI Gabapentin (Gabapentin 600 Mg Tablet) 600 mg PO TID [facility] Last Admin: 12/14/21 14:56 Dose: 600 mg Documented By: JOSH Ibuprofen (Ibuprofen 800 Mg Tablet) 800 mg PO TIDWM [facility] Last Admin: 12/14/21 18:05 Dose: 800 mg Documented By: KAYLA Levothyroxine Sodium (Levothyroxine Sodium 25 Mcg Tablet) 25 mcg PO DAILY@0600 [facility] Last Admin: 12/14/21 08:28 Dose: 25 mcg Documented By: JOSH Lidocaine (Lidocaine 4 % Patch Adh..Patch) 2 patch TRANSDERMA DAILY [facility] Last Admin: 12/14/21 08:27 Dose: 2 patch Documented By: JOSH Loratadine (Loratadine 10 Mg Tablet) 10 mg PO DAILY [facility] Last Admin: 12/14/21 08:28 Dose: 10 mg Documented By: JOSH Lurasidone HCl (Lurasidone Hcl 20 Mg Tablet) 60 mg PO DAILY@1800 [facility] Last Admin: 12/14/21 18:03 Dose: 60 mg Documented By: KAYLA Magnesium Hydroxide (Milk Of Magnesia 30 Ml Oral.Susp) 30 ml PO DAILY PRN PRN Reason: Constipation Multi-Ingred Medicated Throat [place] (Throat [place], Medicated 20 Ml Bottle) 1 spray MUCOUS MEM Q2H PRN PRN Reason: Sore Throat Omeprazole (Omeprazole 20 Mg Capsule.Dr) 20 mg PO DAILY@0630 [facility] Last Admin: 12/14/21 08:29 Dose: 20 mg Documented By: JOSH Perphenazine (Perphenazine 8 Mg Tablet) 16 mg PO BID [facility] Last Admin: 12/14/21 08:28 Dose: 16 mg Documented By: JOSH Pharmacy Consult (Consult Rx Perform Med Rec) 1 each MISCELLANE ONCE PRN PRN Reason: Consult order Labs CBC & Chem 7: 12/07/21 15:01 12/08/21 08:21 Assessment and Plan (1) Bilateral impacted cerumen: Status: Acute Plan 41 year old male with history of schizophrenia admitted to with consult placed for right ear pain. Noted to have b/l cerumen impaction obstructing TMs bilaterally. has completed 3 days debrox. Discussed cerumen irrigation bilaterally with warm water and hydrogen peroxide. Patient was advised on the procedure technique as well as risks associated including injury to the ear canal or TM rupture. Discussed that he may feel slight imbalance/dizziness following the procedure and possibly hearing loss for several hours after the procedure. Pt agreed to procedure and all questions were answered. Ears were flushed solution using 60cc syringe with plastic tip with removal of all cerumen debris. TMs were visualized to be in tact, pearly [place] with a good cone of light b/l and mild erythema in the canals. No evidence of TM rupture or infection. Pt reports immediate improvement in hearing loss and denies pain or dizziness. Advised against using Q-Tips and will follow up with PCP as needed. Thank you for allowing me to participate in this consult. Signing off at this time. Please do not hesitate to call for further questions. Quality Stroke Does the patient have a stroke diagnosis?: No VTE Prior VTE?: No VTE Risk Level:: Medical - moderate - high VTE Device Contraindication: Treatment Not Indicated VTE Drug Contraindication: N/A - Med Ordered
[2021-12-14 19:05] LABS: Strep A Nucleic Acid Negative (Negative)
[2021-12-14 19:59] LABS: COVID-19 Test Negative (Negative); IDNOW Serial# 55D5AD1C
[2021-12-14] MEDS: FLUoxetine HCl 20 MG CAPSULE 40 MG PO (20:09)
[2021-12-15] MEDS: diphenhydrAMINE HCL 25 MG CAPSULE 50 MG PO (00:32)
[2021-12-15 06:00] VITALS: BP 126/71; PULSE 98; TEMP 36.6; O2SAT 98
[2021-12-15 07:00] VITALS: BMI 28.9
[2021-12-15 08:30] VITALS: BP 126/71; PULSE 70; TEMP 36.6
[2021-12-15] MEDS: Gabapentin 600 MG TABLET PO (08:44)
[2021-12-15] MEDS: cloNIDine HCL 0.1 MG TABLET PO (08:44)
[2021-12-15] MEDS: Omeprazole 20 MG CAPSULE.DR PO (08:44)
[2021-12-15] MEDS: Loratadine 10 MG TABLET PO (08:44)
[2021-12-15] MEDS: Perphenazine 8 MG TABLET 16 MG PO (08:44)
[2021-12-15] MEDS: Benztropine Mesylate 1 MG TABLET PO (08:45)
[2021-12-15] MEDS: Ibuprofen 800 MG TABLET PO (08:45)
[2021-12-15] MEDS: Levothyroxine Sodium 25 MCG TABLET PO (08:46)
[2021-12-15] MEDS: Lidocaine 4 % Patch ADH..PATCH 2 PATCH TRANSDERMA (09:41)
--- NOTE | 2021-12-15 16:22 | PM.PSYDC ---
DS: Providers Provider Date of Service: 11/15/21 Date of admission: 12/07/21 23:26 Date of discharge: 12/15/21 Primary care physician: Unknown Physician Admitting clinician: Kirsty Butler Attending physician on admission: Chan Perry Consults: 12/13/21 18:02 Consult to Hospitalist Routine Consulting Provider: Hospitalist Reason For Exam: c/o R ear pain, tried debrox, afebrile, no relief Attending physician on discharge: Chan Perry Discharging clinician: Kirsty Butler DS: Diagnosis Discharge Diagnosis (1) Bilateral impacted cerumen: Status: Resolved DS: Medications Discharge Medications Home Medications: Previous Rx's Medication Instructions Recorded benztropine 1 mg tablet 1 mg PO BID #60 tabs 12/15/21 clonidine HCl 0.1 mg tablet 0.1 mg PO BID #60 tabs 12/15/21 clotrimazole 1 % topical cream 1 appl topical BID #10 grams 12/15/21 diphenhydramine HCl 50 mg tablet 50 mg PO TID PRN Anxiety #90 tabs 12/15/21 fluoxetine 40 mg capsule 40 mg PO BEDTIME #30 caps 12/15/21 gabapentin 600 mg tablet 600 mg PO TID #90 tabs 12/15/21 levothyroxine 25 mcg tablet 25 mcg PO DAILY@0600 #30 tabs 12/15/21 lidocaine 4 % topical patch 2 patch transdermal DAILY #60 ea 12/15/21 (Lidocaine Pain Relief) loratadine 10 mg tablet 10 mg PO DAILY #30 tabs 12/15/21 lurasidone 20 mg tablet (Latuda) 60 mg PO DAILY@1800 #30 tabs 12/15/21 pantoprazole 40 mg tablet,delayed 40 mg PO DAILY@0630 #30 tabs 12/15/21 release perphenazine 8 mg tablet 16 mg PO BID #120 tabs 12/15/21 Mental Status Exam Mental Status Exam Patient Appearance: Appropriate Patient Orientation: Person, Place, Time and Situation Level of Consciousness: Alert Patient Behavior: Talkative and Cooperative Mood Description: Constricted Affect Description: Constricted Patient Cognition Impaired: No Ability to Follow Directions: Good Speech Pattern: Spontaneous Speech Memory Description: Intact Hallucinations: None Delusions: Not Present Thought Process: Intact Thought Content: positive for Intact Judgement: Good Data Data Completed and Pending Completed studies during hospitalization [Text1]: 12/08/21 12/11/21 12/12/21 21:52 07:39 09:46 Estimat Average Glucose 103 Hemoglobin A1c % 5.2 Vitamin B12 Folate TSH 3.34 COVID-19 (ELIZ) Negative COVID-19 Clin Com See Note S. pyogenes GrpA PATRICK 12/12/21 12/12/21 12/14/21 09:46 09:46 17:00 Estimat Average Glucose Hemoglobin A1c % Vitamin B12 388 Folate 6.6 TSH 1.57 COVID-19 (ELIZ) COVID-19 Clin Com S. pyogenes GrpA PATRICK Negative 12/14/21 19:30 Estimat Average Glucose Hemoglobin A1c % Vitamin B12 Folate TSH COVID-19 (ELIZ) Negative COVID-19 Clin Com See Note S. pyogenes GrpA PATRICK DS: Summary Hospital Course Hospital Course: Admission to adult psychiatry for exacerbation of symptoms of schizophrenia. Vraylar was discontinued. Latuda, Clonidine and Gabapentin were initiated. Perphenazine was titrated. Benztropine, Diphenhydramine, Fluoxetine were continued. Time spent discussing smoking cessation with patient: 3 to 10 minutes Status at Discharge Functional status at discharge: independent ambulation Overall status at discharge: patient is progressing back to baseline Time Spent with Patient Time attestation: Total time spent providing and/or coordinating discharge services: 35 Time spent: Greater than 30 minutes Discharge Plan Discharge Anticipated Discharge Date/Time: 12/15/21 13:27 Patient Disposition: Home, Self-Care Discharge Diagnosis: Schizophrenia Referrals: Dr. Gamez, Psychiatrist, [facility] [Other] - 12/30/21 9:00 am Physician,Unknown J [Primary Care Provider] - 1 Week ([facility] [place] to make appnt for pt with PCP office) Discharge Medications: New clonidine HCl 0.1 mg Tablet 0.1 mg PO BID Qty: 60 0RF Protocol: Hold for SBP< HOLD for SBP < : 90 gabapentin 600 mg Tablet 600 mg PO TID Qty: 90 0RF lidocaine [Lidocaine Pain Relief] 4 % Adhesive Patch,Medicated 2 patch transdermal DAILY Qty: 60 0RF levothyroxine 25 mcg Tablet 25 mcg PO DAILY@0600 Qty: 30 0RF perphenazine 8 mg Tablet 16 mg PO BID Qty: 120 0RF clotrimazole 1 % Cream 1 appl topical BID Qty: 10 0RF loratadine 10 mg Tablet 10 mg PO DAILY Qty: 30 0RF Latuda 20 mg Tablet 60 mg PO DAILY@1800 Qty: 30 0RF Continued fluoxetine 40 mg Capsule 40 mg PO BEDTIME Qty: 30 0RF diphenhydramine HCl 50 mg Tablet 50 mg PO TID PRN (Reason: Anxiety) Qty: 90 0RF pantoprazole 40 mg Tablet,Delayed Release (Dr/Ec) 40 mg PO DAILY@0630 Qty: 30 0RF benztropine 1 mg Tablet 1 mg PO BID Qty: 60 0RF Discontinued perphenazine 8 mg Tablet 8 mg PO BID Vraylar 1.5 mg Capsule 3 mg PO DAILY Discharge Orders: Discharge Order (Routine); Ordered 12/15/21 Ordered By: Kirsty Butler Diet: Advance to usual diet Activity on Discharge: As tolerated Stand Alone Forms: Patient Portal Discharge page, Community Support Care Plan Goals: Maintain mood and safe behaviors Take medications as directed Practice coping skills Continue with out patient providers and reach out as needed Health Concerns: Stabilize mood and behaviors Plan of Treatment: Follow up with PCP, psychiatric providers and out patient providers as scheduled Take medications as directed. Assessment: non suicidal, non homicidal, non psychotic, no sx of kathrin Discharge Date/Time: 12/15/21 12:34
== END 2021-12-15 12:34 | disposition home or self-care (01) | DRG 750 ==
LOC: HO.ED 18:53 → HO.PM5 23:37
PROVIDERS: Nurse Practitioner Family; Registered Nurse; Admitting Provider Psychiatry & Neurology Psychiatry; Emergency Provider Emergency Medicine Emergency Medical Services; Visit Provider Clinical Nurse Specialist Psychiatric/Mental Health, Adult
DX: F20.9 Schizophrenia, unspecified (principal); R45.850 Homicidal ideations; H61.23 Impacted cerumen, bilateral; F41.9 Anxiety disorder, unspecified; F17.210 Nicotine dependence, cigarettes, uncomplicated; Z71.6 Tobacco abuse counseling; Z20.822 Contact with and (suspected) exposure to COVID-19; Z79.890 Hormone replacement therapy; Z79.899 Other long term (current) drug therapy
CPT/HCPCS: 36415; 80053; 80061; 80307; 82077; 82607; 82746; 83036; 84443; 84484; 85025; 87635; 87651; 90792; 93005; 99285

== ENCOUNTER 2022-01-21 17:09 | Emergency (ER) | payer OTHER, SELFPAY ==
--- NOTE | ~2022-01-21 | XR_ITS ---
EXAMINATION: XR CHEST CLINICAL INFORMATION: Cough, shortness of breath COMPARISON: None TECHNIQUE: 2 views of the chest were obtained. FINDINGS: No significant abnormality is noted involving the heart, lungs, mediastinum, bony thorax or soft tissues. XR/XR chest 2V IMPRESSION: Unremarkable examination.
[2022-01-21 17:16] VITALS: BP 119/75; PULSE 90; O2SAT 97
[2022-01-21 17:31] VITALS: BP 114/66; PULSE 91; RESP 18; TEMP 38.5; O2SAT 96; BMI 28.5
--- NOTE | 2022-01-21 17:31 | ED_ITS ---
HPI - General Adult General Chief complaint: Upper Respiratory Symptoms <Tiffanie Luis NP - Last Filed: 01/21/22 17:33> Stated complaint: Flu Like Symptoms <Tiffanie Luis NP - Last Filed: 01/21/22 17:33> Time Seen by Provider: 01/21/22 17:55 <Tiffanie Luis NP - Last Filed: 01/21/22 17:33> Source: patient <ELIAN Ch - Last Filed: 01/21/22 18:53> Mode of arrival: ambulatory <ELIAN Ch Last Filed: 01/21/22 18:53> Limitations: no limitations <ELIAN Ch Last Filed: 01/21/22 18:53> History of Present Illness HPI narrative: 41yoM c PMHx of schizophrenia as presenting to the ER with URI complaints that started today which include fevers, chills, fatigue, malaise, intermittent headaches, dizziness, nasal congestion/rhinorrhea, loss of appetite, cough and chest congestion unable to spit up any mucus. He reports he is vaccinated to COVID although not vaccinated to the flu. He denies any recent travel or sick contacts that he is aware of. He denies taking Motrin Tylenol prior to arrival. He was given Tylenol in triage. He denies any neck pain/stiffness, trouble swallowing or breathing, sore throat, ear pain, chest pain or shortness of breath, dyspnea on exertion, orthopnea, palpitations, paresthesias, nausea/vomiting/diarrhea constipation, black or bloody stools, abdominal pain, flank pain, dysuria, hematuria, abnormal penile discharge, lower extremity edema or calf tenderness or any other symptoms complaints or concerns at this time. <ELIAN Ch - Last Filed: 01/21/22 18:53> MD complaint: URI complaints <ELIAN Ch Last Filed: 01/21/22 18:53> Onset (ago): day(s) (Started today) <ELIAN Ch Last Filed: 01/21/22 18:53> Related Data Home medications: Previous Rx's Medication Instructions Recorded benztropine 1 mg tablet 1 mg PO BID #60 tabs 10/27/22 clonidine HCl 0.1 mg tablet 0.1 mg PO BID #60 tabs 12/15/21 clotrimazole 1 % topical cream 1 appl topical BID #10 grams 12/15/21 diphenhydramine HCl 50 mg tablet 50 mg PO TID PRN Anxiety #90 tabs 12/15/21 fluoxetine 40 mg capsule 40 mg PO BEDTIME #30 caps 12/15/21 gabapentin 600 mg tablet 600 mg PO TID #90 tabs 12/15/21 levothyroxine 25 mcg tablet 25 mcg PO DAILY@0600 #30 tabs 12/15/21 lidocaine 4 % topical patch 2 patch transdermal DAILY #60 ea 12/15/21 (Lidocaine Pain Relief) loratadine 10 mg tablet 10 mg PO DAILY #30 tabs 12/15/21 lurasidone 20 mg tablet (Latuda) 60 mg PO DAILY@1800 #30 tabs 12/15/21 pantoprazole 40 mg tablet,delayed 40 mg PO DAILY@0630 #30 tabs 12/15/21 release perphenazine 8 mg tablet 16 mg PO BID #120 tabs 12/15/21 acetaminophen 500 mg tablet 1,000 mg PO QID PRN fever or pain 01/21/22 (Tylenol Extra Strength) #14 tabs albuterol sulfate 90 mcg/actuation 1 inh inhalation QID PRN shortness 01/21/22 aerosol inhaler of breath or wheezing #8.5 grams codeine 10 mg-guaifenesin 100 mg/5 5 ml PO Q6H PRN cold symptoms #120 01/21/22 mL oral liquid (Guaifenesin AC) mL ibuprofen 800 mg tablet 800 mg PO Q8H PRN pain #14 tabs 01/21/22 prednisone 20 mg tablet 40 mg PO DAILY inflammation 5 days 01/21/22 #10 tabs <Tiffanie Luis NP - Last Filed: 01/21/22 17:33> Allergies/adverse reactions: Allergies Allergy/AdvReac Type Severity Reaction Status Date / Time No Known Allergies Allergy Verified 01/21/22 17:31 <Tiffanie Luis NP - Last Filed: 01/21/22 17:33> Review of Systems Review of Systems: Constitutional : + fever/chills/50/malaise, No Weight loss, No Night Sweats ENT/Mouth : + nasal congestion/rhinorrhea, No Hearing loss, No Ear Pain, No Sinus Pain, No Hoarseness, No sore throat, No Swallowing Difficulty Eyes: No Eye Pain, No Swelling, No Redness, No Foreign Body, No Discharge, No Vision Changes Cardiovascular : No Chest Pain, No SOB, No Dyspnea on Exertion, No Orthopnea, No Edema, No Palpitations Respiratory : + Cough, No Sputum, No Wheezing, No Smoke Exposure, No Dyspnea Gastrointestinal : No Nausea, No Vomiting, No Diarrhea, No Constipation, No abdominal Pain, No Hematochezia, No Melena Genitourinary : no irregular bleeding, No Dysuria, No Urinary Frequency, No Hematuria, No Urinary Incontinence, No Urgency, No Flank Pain, No Urinary Flow Changes, No Hesitancy Musculoskeletal : No joint pain, + Myalgias, No Joint Swelling Skin : No Skin Lesions, No rash Neuro : No Weakness, No Numbness, No Paresthesias, No Loss of Consciousness, No Dizziness, No Headache Psych : No Anxiety/Panic, No Depression, No SI/HI/AH/VH, No Social Issues, Heme/Lymph: No Bruising, No Bleeding,No Lymphadenopathy Endocrine : No Polyuria, No Polydipsia, No Temperature Intolerance <ELIAN Ch - Last Filed: 01/21/22 18:53> Yes all other systems are reviewed and are negative <ELIAN Ch - Last Filed: 01/21/22 18:53> [facility] Past Medical History Attestation statement: The following information was validated with the patient. <ELIAN Ch - Last Filed: 01/21/22 18:53> Source: old records reviewed and nursing notes reviewed <ELIAN Ch - Last Filed: 01/21/22 18:53> Medical History: Medical History Schizophrenia <Tiffanie Luis NP - Last Filed: 01/21/22 17:33> Family History Family History: Family History Mother No pertinent family history Father No pertinent family history <Tiffanie Luis NP - Last Filed: 01/21/22 17:33> Social History Social History: Social History Household Members: None Housing: Apartment Do you presently have visiting nurse or other home services: No Alcohol intake: never Patient Tobacco Use Status: Current everyday Tobacco user Tobacco use type: Cigarette Cigarette Packs Per Day: 0.5 Cigarettes Per Day: 10.0 Second Hand Smoke Exposure: No Substance Use Type: Crack/Cocaine and Marijuana Advance Directives: No Advance Directives Information Provided: No service: No Sexual orientation: Straight/Heterosexual <Tiffanie Luis NP - Last Filed: 01/21/22 17:33> Physical Exam ED Vital Signs: Vital Signs - 24 hr 01/21/22 17:31 01/21/22 18:15 01/21/22 18:27 Temperature 101.3 F H Pulse Rate 91 92 96 Respiratory Rate 18 18 16 Blood Pressure 114/66 Pulse Oximetry 96 Oxygen Delivery Method Room Air BMI result Body Mass Index 28.5 <Tiffanie Luis NP - Last Filed: 01/21/22 17:33> Vital Signs - 24 hr 01/21/22 17:31 01/21/22 18:15 01/21/22 18:27 Temperature 101.3 F H Pulse Rate 91 92 96 Respiratory Rate 18 18 16 Blood Pressure 114/66 Pulse Oximetry 96 Oxygen Delivery Method Room Air BMI result Body Mass Index 28.5 vital signs have been reviewed as normal and appeared to be correct. Blood pressure normal. Heart rate normal. Respiration rate normal. Temperature 101.3 Oxygen saturation normal. <ELIAN Ch - Last Filed: 01/21/22 18:53> Vital Signs - 24 hr 01/21/22 17:31 01/21/22 18:15 01/21/22 18:27 Temperature 101.3 F H Pulse Rate 91 92 96 Respiratory Rate 18 18 16 Blood Pressure 114/66 Pulse Oximetry 96 Oxygen Delivery Method Room Air BMI result Body Mass Index 28.5 <Ana Chowdhury NP - Last Filed: 01/21/22 20:10> Appearance: Alert. Oriented X3. No acute distress. Head: Normal external exam. Normocephalic. Atraumatic. Eyes: PERRLA. EOMI. Conjunctiva and sclera normal. Eyelids normal. ENT: EAC normal. TM's Normal. Posterior pharynx/tonsils erythematous. No exudate in noted. Soft and hard palate within normal limit. Uvula midline. Moist mucous membranes. No lesions/ulcerations or masses noted on the tongue. Normal voice. No trismus noted. No drooling noted. No muffled voice noted. Neck: Normal inspection. Neck supple. FROM. No adenopathy. Thyroid Normal. No tracheal deviation noted. No crepitus is noted. No meningeal signs. No neck mass noted. No signs of trauma noted. CVS: Normal heart rate and rhythm. Heart sound normal. Pulses normal throughout. No murmurs/rales/gallops. Respiratory: No respiratory distress. Pain with inspiration. Decreased breath sounds. No wheezes/rales/rhonchi noted. Chest nontender. No crepitus is noted. No signs of trauma noted. No accessory muscle usage noted or decreased air movement noted. No signs of trauma. Back: Full range of motion noted. Nontender. Skin: Skin warm and dry. Normal skin color. Normal skin turgor. No rashes/lesions/lacerations noted. Extremities: Extremities exhibit normal range of motion and nontender. Neuro: Oriented X 3. No motor deficit. No sensory deficit. Reflexes normal. Normal steady gait. No focal neuro deficits noted. CN's II-XII intact bilaterally? Vascular: + radial pulses/+ 2 distal pedal pulses/+2 dorsalis pedis b/l. Normal cap refill. No cyanosis noted to upper extremity nails and lower extremity toes nails. <ELIAN Ch - Last Filed: 01/21/22 18:53> Course Course Course Narrative: This is a rapid medical exam. Deferred additional HPI, PE, ROS to primary provider. 41 yo male with schizophrenia with cough, fever, nausea, headache, dizziness, loss of appetite. Fever in triage. Likely from viral illness. will give tylenol, check testing for flu, covid and rsv. <Tiffanie Luis NP - Last Filed: 01/21/22 17:33> Reevaluation(s) Reevaluation #1: 41yoM c PMHx of schizophrenia as presenting to the ER with URI complaints that started today which include fevers, chills, fatigue, malaise, intermittent headaches, dizziness, nasal congestion/rhinorrhea, loss of appetite, cough and chest congestion unable to spit up any mucus. He reports he is vaccinated to COVID although not vaccinated to the flu. Plan: Will obtain a COVID/RSV/flu, obtain a chest x-ray. Provide a breathing treatment, 60 mg of prednisone and 10 mL of Robitussin with codeine re-evaluate. <ELIAN Ch - Last Filed: 01/21/22 18:53> 41yoM c PMHx of schizophrenia as presenting to the ER with URI complaints that started today which include fevers, chills, fatigue, malaise, intermittent headaches, dizziness, nasal congestion/rhinorrhea, loss of appetite, cough and chest congestion unable to spit up any mucus. He reports he is vaccinated to COVID although not vaccinated to the flu. Plan: Will obtain a COVID/RSV/flu, obtain a chest x-ray. Provide a breathing treatment, 60 mg of prednisone and 10 mL of Robitussin with codeine re-evaluate. 20:08 patient tested positive for influenza A. Plan of care discharge home with supportive measures. Patient verbalized understanding of and agrees to plan of care. Verbalized understanding of signs and symptoms indicating need for emergent intervention. <Ana Chowdhury NP - Last Filed: 01/21/22 20:10> Time: 18:00 <ELIAN Ch - Last Filed: 01/21/22 18:53> Reevaluation #2: Sign-out to JORY Perez pending above <ELIAN Ch - Last Filed: 01/21/22 18:53> Time: 18:53 <ELIAN Ch - Last Filed: 01/21/22 18:53> Medications Administered Discontinued Medications Generic Name Dose Route Start Last Admin Trade Name Freq PRN Reason Stop Dose Admin Acetaminophen 975 mg 01/21/22 17:32 01/21/22 17:36 Acetaminophen 325 Mg Tablet PO 01/21/22 17:33 975 mg ONCE ONE Administration Albuterol Sulfate 2 puff 01/21/22 18:22 01/21/22 18:26 Albuterol Sulfate 90 Mcg 8 Gm Inhaler INHALE 01/21/22 18:23 2 puff ONCE ONE Administration Albuterol Sulfate 2.5 mg/ 0 mg 01/21/22 17:56 01/21/22 18:14 Albuterol/Ipratropium 3 ml INHALE 01/21/22 17:57 5 each ONCE ONE Administration Guaifenesin/Codeine Phosphate 10 ml 01/21/22 17:56 01/21/22 19:09 Guaifen/Codeine Sf 200/20/10ml 10 Ml Liquid PO 01/21/22 17:57 10 ml ONCE ONE Administration Prednisone 60 mg 01/21/22 17:56 01/21/22 19:09 Prednisone 20 Mg Tablet PO 01/21/22 17:57 60 mg ONCE ONE Administration <Tiffanie Luis NP - Last Filed: 01/21/22 17:33> Medications Administered Discontinued Medications Generic Name Dose Route Start Last Admin Trade Name Freq PRN Reason Stop Dose Admin Acetaminophen 975 mg 01/21/22 17:32 01/21/22 17:36 Acetaminophen 325 Mg Tablet PO 01/21/22 17:33 975 mg ONCE ONE Administration Albuterol Sulfate 2 puff 01/21/22 18:22 01/21/22 18:26 Albuterol Sulfate 90 Mcg 8 Gm Inhaler INHALE 01/21/22 18:23 2 puff ONCE ONE Administration Albuterol Sulfate 2.5 mg/ 0 mg 01/21/22 17:56 01/21/22 18:14 Albuterol/Ipratropium 3 ml INHALE 01/21/22 17:57 5 each ONCE ONE Administration Guaifenesin/Codeine Phosphate 10 ml 01/21/22 17:56 01/21/22 19:09 Guaifen/Codeine Sf 200/20/10ml 10 Ml Liquid PO 01/21/22 17:57 10 ml ONCE ONE Administration Prednisone 60 mg 01/21/22 17:56 01/21/22 19:09 Prednisone 20 Mg Tablet PO 01/21/22 17:57 60 mg ONCE ONE Administration <Kendra Gary PA - Last Filed: 01/21/22 18:53> Medications Administered Discontinued Medications Generic Name Dose Route Start Last Admin Trade Name Freq PRN Reason Stop Dose Admin Acetaminophen 975 mg 01/21/22 17:32 01/21/22 17:36 Acetaminophen 325 Mg Tablet PO 01/21/22 17:33 975 mg ONCE ONE Administration Albuterol Sulfate 2 puff 01/21/22 18:22 01/21/22 18:26 Albuterol Sulfate 90 Mcg 8 Gm Inhaler INHALE 01/21/22 18:23 2 puff ONCE ONE Administration Albuterol Sulfate 2.5 mg/ 0 mg 01/21/22 17:56 01/21/22 18:14 Albuterol/Ipratropium 3 ml INHALE 01/21/22 17:57 5 each ONCE ONE Administration Guaifenesin/Codeine Phosphate 10 ml 01/21/22 17:56 01/21/22 19:09 Guaifen/Codeine Sf 200/20/10ml 10 Ml Liquid PO 01/21/22 17:57 10 ml ONCE ONE Administration Prednisone 60 mg 01/21/22 17:56 01/21/22 19:09 Prednisone 20 Mg Tablet PO 01/21/22 17:57 60 mg ONCE ONE Administration <Ana Chowdhury NP - Last Filed: 01/21/22 20:10> Medical Decision Making Differential Diagnosis Differential Diagnosis: COVID, influenza, pneumonia <Ana Chowdhury NP - Last Filed: 01/21/22 20:10> Medical Records Medical records reviewed: Yes I reviewed the patient's medical records. <ELIAN Ch - Last Filed: 01/21/22 18:53> Lab Data Lab results reviewed: Yes I reviewed the patient's lab results. <ELIAN Ch - Last Filed: 01/21/22 18:53> Yes I reviewed the patient's lab results. <Ana Chowdhury NP - Last Filed: 01/21/22 20:10> Labs: Lab Results 01/21/22 Range/Units 18:23 Influenza Type A (PCR) POSITIVE A (Negative) Influenza Type B (PCR) NEGATIVE (Negative) RSV RNA Qual (PCR) NEGATIVE (Negative) SARS-CoV-2 RNA (RT-PCR) NEGATIVE (Negative) <Tiffanie Luis NP - Last Filed: 01/21/22 17:33> Lab Results 01/21/22 Range/Units 18:23 Influenza Type A (PCR) POSITIVE A (Negative) Influenza Type B (PCR) NEGATIVE (Negative) RSV RNA Qual (PCR) NEGATIVE (Negative) SARS-CoV-2 RNA (RT-PCR) NEGATIVE (Negative) <ELIAN Ch - Last Filed: 01/21/22 18:53> Lab Results 01/21/22 Range/Units 18:23 Influenza Type A (PCR) POSITIVE A (Negative) Influenza Type B (PCR) NEGATIVE (Negative) RSV RNA Qual (PCR) NEGATIVE (Negative) SARS-CoV-2 RNA (RT-PCR) NEGATIVE (Negative) <Ana Chowdhury NP - Last Filed: 01/21/22 20:10> Imaging Data Chest x-ray: Attestation: I personally reviewed and interpreted this imaging study as follows: <Ana Chowdhury NP - Last Filed: 01/21/22 20:10> Radiologist's impression: EXAMINATION: XR CHEST CLINICAL INFORMATION: Cough, shortness of breath COMPARISON: None TECHNIQUE: 2 views of the chest were obtained. FINDINGS: No significant abnormality is noted involving the heart, lungs, mediastinum, bony thorax or soft tissues. XR/XR chest 2V IMPRESSION: Unremarkable examination. <Ana Chowdhury NP - Last Filed: 01/21/22 20:10> Discharge Plan Discharge Clinical Impression: Fever, Influenza <Tiffanie Luis NP - Last Filed: 01/21/22 17:33> Patient Disposition: Home, Self-Care <Tiffanie Luis NP - Last Filed: 01/21/22 17:33> Instructions: Fever in Adults (ED), Influenza (ED) <Tiffanie Luis NP - Last Filed: 01/21/22 17:33> Additional Instructions: You tested positive for influenza. Please drink plenty of fluids. Tylenol 650 mg every 6 hours and Motrin 600 mg every 6 hours for pain or fever management. Write down what time he take these medications to prevent accidental overdose. Last dose of Tylenol was at 18:00. Consider taking Motrin at 21:00 so you can have medication every 3 hours for fever pain management. Thank you for choosing this emergency department for evaluation. Please follow-up with primary care physician as needed. Return to the emergency department for any new, concerning, or worsening symptoms. <Tiffanie Luis NP - Last Filed: 01/21/22 17:33> Prescriptions: New ibuprofen 800 mg tablet 800 mg PO Q8H PRN (Reason: pain) Qty: 14 0RF prednisone 20 mg tablet 40 mg PO DAILY 5 Days Qty: 10 0RF acetaminophen [Tylenol Extra Strength] 500 mg tablet 1,000 mg PO QID PRN (Reason: fever or pain) Qty: 14 0RF codeine-guaifenesin [Guaifenesin AC] 10-100 mg/5 mL liquid 5 ml PO Q6H PRN (Reason: cold symptoms) Qty: 120 0RF albuterol sulfate 90 mcg/actuation HFA aerosol inhaler 1 inh inhalation QID PRN (Reason: shortness of breath or wheezing) Qty: 8.5 0RF No Action clonidine HCl 0.1 mg Tablet 0.1 mg PO BID Qty: 60 0RF Protocol: Hold for SBP< HOLD for SBP < : 90 gabapentin 600 mg Tablet 600 mg PO TID Qty: 90 0RF lidocaine [Lidocaine Pain Relief] 4 % Adhesive Patch,Medicated 2 patch transdermal DAILY Qty: 60 0RF levothyroxine 25 mcg Tablet 25 mcg PO DAILY@0600 Qty: 30 0RF perphenazine 8 mg Tablet 16 mg PO BID Qty: 120 0RF clotrimazole 1 % Cream 1 appl topical BID Qty: 10 0RF loratadine 10 mg Tablet 10 mg PO DAILY Qty: 30 0RF Latuda 20 mg Tablet 60 mg PO DAILY@1800 Qty: 30 0RF fluoxetine 40 mg Capsule 40 mg PO BEDTIME Qty: 30 0RF diphenhydramine HCl 50 mg Tablet 50 mg PO TID PRN (Reason: Anxiety) Qty: 90 0RF pantoprazole 40 mg Tablet,Delayed Release (Dr/Ec) 40 mg PO DAILY@0630 Qty: 30 0RF benztropine 1 mg Tablet 1 mg PO BID Qty: 60 0RF <Tiffanie Luis NP - Last Filed: 01/21/22 17:33> Stand Alone Forms: Work/School Release <Tiffanie Luis NP - Last Filed: 01/21/22 17:33>
[2022-01-21] MEDS: Acetaminophen 325 MG TABLET 975 MG PO (17:36)
[2022-01-21] MEDS: Albuterol Sulfate 2.5 MG, Albuterol/Iprat 2.5/0.5MG 3 ML 3 ML INHALE (18:14)
[2022-01-21 18:15] VITALS: PULSE 92; RESP 18; O2SAT 96
[2022-01-21] MEDS: Albuterol Sulfate 90 MCG 8 GM INHALER 2 PUFF INHALE (18:26)
[2022-01-21 18:27] VITALS: PULSE 96; RESP 16; O2SAT 92
[2022-01-21 19:07] LABS: Influenza A PCR POSITIVE (Negative); Influenza B PCR NEGATIVE (Negative); Resp Syncy Virus RNA Qual PCR NEGATIVE (Negative); SARS COV2 PCR INHOUSE NEGATIVE (Negative)
[2022-01-21] MEDS: predniSONE 20 MG TABLET 60 MG PO (19:09)
[2022-01-21] MEDS: guaiFEN/Codeine SF 200/20/10ML 10 ML LIQUID PO (19:09)
== END 2022-01-21 20:26 | disposition home or self-care (01) ==
PROVIDERS: Nurse Practitioner Family; Emergency Provider Emergency Medicine Emergency Medical Services
DX: J11.1 Influenza due to unidentified influenza virus with other respiratory manifestations (principal); R50.9 Fever, unspecified
CPT/HCPCS: 0241U; 71046; 94640; 99284